=== PATIENT | female | born 1980 | race Caucasian/White ===

== ENCOUNTER 2022-03-01 13:18 | Outpatient (CLI) | payer OTHER ==
[~2022-03-01] VITALS: Ht 165.1 cm; Wt 90.0 kg
[~2022-03-01 13:18] MED LIST: HCTZ 25MG TAB25 MG PO
[2022-03-01 14:05] VITALS: BP 126/88; PULSE 84; TEMP 98.8
[2022-03-01 14:51] VITALS: BP 138/89; PULSE 73
[2022-03-01 15:00] VITALS: BP 134/85; PULSE 73
[2022-03-01 15:15] VITALS: BP 129/82; PULSE 72
[2022-03-01 15:20] LABS: CSF APPEARANCE CLEAR; CSF COLOR COLORLESS; CSF RBC 17 /mm3 (0-0)
[2022-03-01 15:30] VITALS: BP 130/81; PULSE 72
[2022-03-01 15:45] VITALS: BP 132/85; PULSE 80
--- NOTE | 2022-03-01 16:01 | NUR ---
Discharge instructions given to pt.Pt verbalizes understanding.Pt escorted out via wheelchair by this nurse.
[2022-03-01 16:04] LABS: GLUCOSE,CSF 54 mg/dL (40-70); TOTAL PROTEIN,CSF 29 mg/dL (15-45)
[2022-03-01 17:13] LABS: CSF MONONUCLEAR 100 % (70-100); CSF POLYMORPHONUCLEAR 0 % (0-6)
[2022-03-06 11:06] LABS: ALBUMIN CSF 16.5 mg/dL (<=27.0); ALBUMUN SERUM 4200 mg/dL (())
[2022-03-06 11:54] LABS: CSF IGG/ALBUMIN 0.15 (<=0.21); CSF,IGG 2.4 mg/dL (<=8.1)
[2022-03-06 12:51] LABS: CSF SYNTHESIS RATE 0.57 mg/24 h (<=12); CSF-IGG INDEX 0.58 (<=0.85); IGG,SERUM 1100 mg/dL (()); IGG/ALBUMIN SERUM 0.26 (<=0.40)
[2022-03-06 15:27] LABS: CSF OLIG BD INTERPRETATION 1 bands (<2); SE OLIGOCLONAL BANDING 0 bands (())
== END 2022-03-01 16:10 ==
LOC: COL.RAD 13:18
PROVIDERS: Psychiatry & Neurology Neurology
DX: G93.9 Disorder of brain, unspecified (principal)